=== PATIENT | female | born 1990 | race Caucasian/White ===

== ENCOUNTER 2023-06-05 10:45 | Emergency (ER) | payer SELFPAY ==
[~2023-06-05] VITALS: Ht 157.5 cm; Wt 81.6 kg
[2023-06-05 10:53] VITALS: BP 163/99; TEMP 98.2; O2SAT 97
[2023-06-05 10:55] VITALS: PULSE 116; RESP 20
[2023-06-05 12:26] LABS: BASOPHILS % 0.6 % (0.0-2.0); EOSINOPHILS % 1.4 % (0.0-5.0); HEMATOCRIT. 39.6 % (36.0-48.0); HEMOGLOBIN. 13.3 g/dL (12.0-16.0); LYMPHOCYTES % 21.3 % (20.0-50.0); MEAN CORPUSCULAR HEMOGLOBIN 31.3 pg (28.0-32.0); MEAN CORPUSCULAR HGB CONC 33.6 g/dL (31.0-37.0); MEAN CORPUSCULAR VOLUME 92.9 fL (81.0-99.0); MEAN PLATELET VOLUME 8.6 fl (7.4-10.4); MONOCYTES % 7.3 % (2.0-8.0); NEUTROPHILS % 69.4 % (40.0-76.0); PLATELET 233 x1000/uL (130-400); RED BLOOD CELL COUNT 4.26 mill/uL (4.2-5.4); RED CELL DISTRIBUTION WIDTH 13.8 % (11.6-14.6); WHITE BLOOD COUNT 8.3 x1000/uL (4.5-11.0)
[2023-06-05 12:54] LABS: CALCIUM 9.5 mg/dL (8.7-10.4); CARBON DIOXIDE 23 mEq/L (21-32); CHLORIDE 106 mEq/L (98-107); CREATININE 0.6 mg/dL (0.6-1.0); GLUCOSE 109 mg/dL (70-105); POTASSIUM 4.1 mEq/L (3.5-5.1); SODIUM 140 mEq/L (136-145); UREA NITROGEN BLOOD 6 mg/dL (9-23)
[2023-06-05 13:03] LABS: TROPONIN I HIGH SENSITIVITY < 4 ng/L (3.0-34)
== END 2023-06-05 13:55 | disposition home or self-care (01) ==
LOC: ER 10:45
DX: F41.9 Anxiety disorder, unspecified (principal); R00.2 Palpitations
CPT/HCPCS: 36415; 71045; 80048; 84484; 85025; 85379; 93005; 99285

== ENCOUNTER 2024-07-01 20:41 | Emergency (ER) | payer MEDICAID, OTHER ==
[~2024-07-01] VITALS: Ht 167.6 cm; Wt 86.0 kg
[2024-07-01 20:44] VITALS: O2SAT 100
[2024-07-01] MEDS: SODIUM CHLORIDE 0.9% 1,000 ML IV ONE (21:15)
[2024-07-01] MEDS ORDERED: IBUP-2028 MT (22:39)
[2024-07-01] MEDS ORDERED: ONDA-239 PO (22:39)
[2024-07-01] MEDS ORDERED: TUSSL MT (22:39)
[2024-07-01] MEDS: IBUPROFEN 600MG TABLET PO ONE (22:58)
[2024-07-01] MEDS: ONDANSETRON 4MG ODT PO ONE (22:59)
[2024-07-02 03:17] VITALS: BP 138/87; PULSE 74; RESP 20; TEMP 37.00296; O2SAT 100
== END 2024-07-02 03:20 | disposition home or self-care (01) ==
LOC: ER 20:41
DX: J06.9 Acute upper respiratory infection, unspecified (principal); B97.89 Other viral agents as the cause of diseases classified elsewhere; F41.9 Anxiety disorder, unspecified; F10.90 Alcohol use, unspecified, uncomplicated; Y90.9 Presence of alcohol in blood, level not specified; Z20.822 Contact with and (suspected) exposure to COVID-19
CPT/HCPCS: 81025; 87804 ×2; 71045; 96360; 99284; 87426; Q0162; J7030; Z7610

== ENCOUNTER 2024-12-08 22:15 | Emergency (ER) | payer MEDICAID ==
[~2024-12-08] VITALS: Ht 165.1 cm; Wt 68.0 kg
[~2024-12-08 22:15] MED LIST: BUSP5TAB3 MT; IBUP-2028 MT; LEVO-65 MT; ONDA-239 PO; TUSSL MT
[2024-12-08 22:19] VITALS: O2SAT 98
[2024-12-08] MEDS ORDERED: AMOX1TAB16 MT (22:52)
[2024-12-08 22:59] VITALS: BP 153/98; PULSE 99; RESP 17; TEMP 36.9; O2SAT 100
== END 2024-12-08 23:05 | disposition home or self-care (01) ==
LOC: ER 22:15
DX: S31.825A Open bite of left buttock, initial encounter (principal); F41.9 Anxiety disorder, unspecified; Z79.899 Other long term (current) drug therapy; W54.0XXA Bitten by dog, initial encounter; Y93.89 Activity, other specified; Y92.89 Other specified places as the place of occurrence of the external cause; Y99.8 Other external cause status
CPT/HCPCS: 81025; 99283; Z7610

== ENCOUNTER 2025-04-17 21:48 | Emergency (ER) | payer MEDICAID ==
[~2025-04-17] VITALS: Ht 167.6 cm; Wt 71.0 kg
[~2025-04-17 21:48] MED LIST changes: -LEVO-65 MT; +LEVO750T68 MT
[2025-04-17 21:51] VITALS: BP 139/83; PULSE 110; RESP 20; TEMP 36.6; O2SAT 100
== END 2025-04-17 22:28 | disposition left against medical advice (07) ==
LOC: ER 21:48
DX: F41.9 Anxiety disorder, unspecified (principal); I10 Essential (primary) hypertension
CPT/HCPCS: 99283

== ENCOUNTER 2025-05-04 19:38 | Emergency (ER) | payer MEDICAID ==
[~2025-05-04] VITALS: Ht 162.6 cm; Wt 62.0 kg
[2025-05-04 19:48] VITALS: O2SAT 98
[2025-05-04 20:49] LABS: CLARITY URINE CLOUDY (CLEAR); COLOR URINE ORANGE (YELLOW); GLUCOSE URINE NEGATIVE (NEGATIVE); KETONES URINE TRACE (NEGATIVE); LEUKOCYTE ESTERASE URINE 3+ (NEGATIVE); NITRITE URINE NEGATIVE (NEGATIVE); OCCULT BLOOD URINE 3+ (NEGATIVE); PH URINE 6.0 (4.5-8.0); PROTEIN URINE 2+ (NEGATIVE); SPECIFIC GRAVITY URINE 1.014 (1.005-1.030); UROBILINOGEN URINE 1.0 E.U./dL (0.2-1.0)
[2025-05-04] MEDS: LORAZEPAM 1MG TABLET PO ONE (20:56)
[2025-05-04] MEDS: ACETAMINOPHEN 500MG TABLET PO ONE (20:59)
[2025-05-04 21:03] LABS: *AMPHETAMINES SCREEN URINE NEGATIVE (NEGATIVE); *BARBITURATES SCREEN URINE NEGATIVE (NEGATIVE); *BENZODIAZEPINES SCREEN URINE PRESUMPTIVE POSITIVE (NEGATIVE); *COCAINE SCREEN URINE NEGATIVE (NEGATIVE); CANNABINOID URINE SCREEN NEGATIVE (NEGATIVE); ECSTASY MDMA SCREEN URINE NEGATIVE (NEGATIVE); METHADONE URINE SCREEN NEGATIVE (NEGATIVE); OPIATES URINE SCREEN NEGATIVE (NEGATIVE); PHENCYCLIDINE URINE SCREEN NEGATIVE (NEGATIVE)
[2025-05-04 21:35] LABS: BACTERIA URINE 4+; SQUAMOUS EPITHELIAL CELL URINE 1+ /lpf (RARE/1+)
[2025-05-04 21:46] LABS: BASOPHILS % 1.8 % (0.0-2.0); EOSINOPHILS % 1.4 % (0.0-5.0); HEMATOCRIT. 33.9 % (36.0-48.0); HEMOGLOBIN. 11.1 g/dL (12.0-16.0); LYMPHOCYTES % 43.4 % (20.0-50.0); MEAN PLATELET VOLUME 7.6 fl (7.4-10.4); MONOCYTES % 5.0 % (2.0-8.0); NEUTROPHILS % 48.4 % (40.0-76.0); PLATELET 295 x1000/uL (130-400); RED BLOOD CELL COUNT 3.56 mill/uL (4.2-5.4); RED CELL DISTRIBUTION WIDTH 14.9 % (11.6-14.6)
[2025-05-04 21:57] LABS: CREATININE 0.5 mg/dL (0.6-1.0)
[2025-05-04 21:58] LABS: UREA NITROGEN BLOOD < 5 mg/dL (9-23)
[2025-05-04] MEDS: CEPHALEXIN 250MG CAPSULE PO SCH (22:03)
[2025-05-04 22:17] LABS: HCG SCREEN NEGATIVE
[2025-05-05 00:40] LABS: TROPONIN I HIGH SENSITIVITY 6 ng/L (3.0-34)
[2025-05-05] MEDS ORDERED: ACET-2708 MT (00:58)
[2025-05-05 01:45] VITALS: BP 118/70; PULSE 99; RESP 13; TEMP 36.6; O2SAT 100
== END 2025-05-05 02:18 | disposition home or self-care (01) ==
LOC: ER 19:38
DX: F41.9 Anxiety disorder, unspecified (principal); Z79.899 Other long term (current) drug therapy; Z20.822 Contact with and (suspected) exposure to COVID-19
CPT/HCPCS: 36415; 71045; 73562; 80048; 80305; 80307; 80320; 80329; 81003; 84484; 84703; 85025; 87426; 93005; 93971; 99285; G0480

== ENCOUNTER 2025-06-19 15:55 | Emergency (ER) | payer MEDICAID ==
[~2025-06-19] VITALS: Ht 162.6 cm; Wt 65.0 kg
[2025-06-19 15:57] VITALS: BP 117/70; PULSE 100; RESP 16; TEMP 98.3; O2SAT 100
== END 2025-06-19 17:45 | disposition left against medical advice (07) ==
LOC: ER 15:55
DX: S01.511A Laceration without foreign body of lip, initial encounter (principal); Y04.0XXA Assault by unarmed brawl or fight, initial encounter; Y93.89 Activity, other specified; Y92.89 Other specified places as the place of occurrence of the external cause; Y99.8 Other external cause status
CPT/HCPCS: 99281